=== PATIENT | female | born 1990 ===

== ENCOUNTER 2016-04-25 12:11 | Emergency (ER) | payer BC ==
[2016-04-25 12:36] VITALS: BP 142/91
--- NOTE | 2016-04-25 12:51 | UC ---
Ear Complaint HPI - HPI Summary HPI Summary: bilateral ear pain left worse than right-got sever on decent when flying this morning - History of Current Complaint Chief Complaint: UCEar Stated Complaint: EAR PAIN Time Seen by Provider: 04/25/16 12:50 Hx Obtained From: Patient Hx Last Menstrual Period: 04/07/16 ?: No Onset/Duration: Gradual Onset, Still Present, Worse Since - this morning Severity Initially: Mild Severity Currently: Severe Pain Intensity: 10 Aggravating Factors: Nothing Alleviating Factors: Nothing - Allergies/Home Medications Allergies/Adverse Reactions: Allergies Allergy/AdvReac Type Severity Reaction Status Date / Time No Known Allergies Allergy Verified 04/25/16 12:31 PMH/Surg Hx/FS Hx/Imm Hx Previously Healthy: Yes - Surgical History Surgical History: None - Family History Known Family History: Positive: None Family History: no cardio vascular issues in family lineage - Social History Occupation: Employed Full-time Lives: With Family Alcohol Use: None Substance Use Type: None Smoking Status (MU): Never Smoked Tobacco Review of Systems Constitutional: Negative Skin: Negative Eyes: Negative ENT: Negative, Ear Ache - L>R Respiratory: Negative Cardiovascular: Negative Gastrointestinal: Negative Genitourinary: Negative Motor: Negative Neurovascular: Negative Musculoskeletal: Negative Neurological: Negative Psychological: Negative All Other Systems Reviewed And Are Negative: Yes Physical Exam Triage Information Reviewed: Yes Appearance: Well-Appearing, Well-Nourished, Pain Distress - mild Vital Signs: Initial Vital Signs Temp 97.7 F 04/25/16 12:31 Pulse 94 04/25/16 12:31 Resp 16 04/25/16 12:31 BP 142/91 04/25/16 12:31 Pulse Ox 98 04/25/16 12:31 Vital Signs Reviewed: Yes Eye Exam: Normal Eyes: Positive: Conjunctiva Clear ENT Exam: Normal ENT: Positive: Hearing grossly normal, Pharynx normal, TM bulging - left worse than right, TM red. Negative: Nasal congestion, Nasal drainage, Tonsillar swelling, Tonsillar exudate, Trismus, Muffled/hoarse voice Dental Exam: Normal Neck exam: Normal Neck: Positive: Supple, Nontender, No Lymphadenopathy Respiratory Exam: Normal Respiratory: Positive: Chest non-tender, Lungs clear, Normal breath sounds, No respiratory distress, No accessory muscle use Cardiovascular Exam: Normal Cardiovascular: Positive: RRR, No Murmur, Pulses Normal, Brisk Capillary Refill Musculoskeletal Exam: Normal Musculoskeletal: Positive: Strength Intact, ROM Intact, No Edema Neurological Exam: Normal Neurological: Positive: Alert, Muscle Tone Normal Psychological Exam: Normal Skin Exam: Normal Ear Complaint Course/Dx - Course Course Of Treatment: Amoxicillin, sudafed, increase fluids, follow with pcp prn - Differential Dx/Diagnosis Differential Diagnosis/HQI/PQRI: Cellulitis, Cerumen Impaction, Otitis Externa, Otitis Media, URI Provider Diagnoses: L- Serrous otitis media, eustation tube dysfunction Discharge - Discharge Plan Condition: Stable Disposition: HOME Prescriptions: Amoxicillin (*) 875 mg PO BID #20 tab Patient Education Materials: Ibuprofen (By mouth), Pseudoephedrine (By mouth), Ruptured Eardrum (ED), Serous Otitis Media (ED) Referrals: [facility] [place] [facility] [place] [facility] [Outside] - If Needed No Primary Care Phys,NOPCP [Primary Care Provider] -
== END 2016-04-25 13:07 | disposition home or self-care (01) ==
LOC: UCEAST 12:11
DX: H65.92 Unspecified nonsuppurative otitis media, left ear (principal); H69.90 Unspecified Eustachian tube disorder, unspecified ear
CPT/HCPCS: 99202; G0463